=== PATIENT | male | born 1970 | race Caucasian/White ===

== ENCOUNTER 2019-11-15 19:48 | Emergency (ER) | payer SELFPAY ==
[~2019-11-15] VITALS: Ht 170.2 cm; Wt 77.0 kg
[2019-11-15] MEDS ORDERED: BACITRACIN ZINC OINT UDPKT TOP ONE (20:15)
[2019-11-15] MEDS ORDERED: IBUPROFEN 600MG TABLET PO ONE (20:45)
[2019-11-16 10:00] VITALS: BP 120/70
== END 2019-11-16 10:01 | disposition home or self-care (01) ==
LOC: ER 19:48
DX: S80.01XA Contusion of right knee, initial encounter (principal); S05.42XA Penetrating wound of orbit with or without foreign body, left eye, initial encounter; Z96.641 Presence of right artificial hip joint; Z59.0 Homelessness; Y08.89XA Assault by other specified means, initial encounter; Y93.89 Activity, other specified; Y92.89 Other specified places as the place of occurrence of the external cause; Y99.8 Other external cause status
CPT/HCPCS: 73562; 93005; 99285